=== PATIENT | female | born 1950 | race Caucasian/White ===

== ENCOUNTER → 2018-03-30 | Outpatient (CLI) | payer BC | END | disposition home or self-care (01) | LOC: KCIC MRI 13:46 | DX: S83.242A Other tear of medial meniscus, current injury, left knee, initial encounter (principal); S86.812A Strain of other muscle(s) and tendon(s) at lower leg level, left leg, initial encounter; M17.12 Unilateral primary osteoarthritis, left knee; M25.462 Effusion, left knee; X58.XXXA Exposure to other specified factors, initial encounter; Y93.89 Activity, other specified; Y92.89 Other specified places as the place of occurrence of the external cause; Y99.8 Other external cause status | CPT/HCPCS: 73721 ==

== ENCOUNTER → 2018-07-03 | Outpatient (CLI) | payer BC ==
[2015-12-24 17:59] VITALS: BP 144/70
[~2018-07-03] MED LIST: CHOL200074 PO; LOSA50TA7 PO; LOVA10TA PO
--- NOTE | 2018-07-03 17:15 | KCIC ---
LUMBAR SPINE 2-3V History: Spondylolisthesis Comparison: None. Findings: 3 views of the lumbar spine to include neutral, flexion, and extension radiographs are submitted. Lumbar vertebral body stature is maintained. There is grade 1 anterior spondylolisthesis L4-L5 somewhat accentuated with flexion. There is questionable minimal posterior subluxation L5 relative S1 in neutral position not seen with flexion or extension. There is moderate to severe narrowing of the L5-S1 intervertebral disc space, mild to moderate narrowing at L4-L5. There is multilevel lumbar facet degenerative change. There is atherosclerotic calcification of the abdominal aorta. Impression: 1. There is grade 1 anterior spondylolisthesis L4-5 somewhat accentuated with flexion. There is questionable minimal posterior subluxation L5 relative to S1 only seen with neutral position. There is degenerative disc disease greatest at L5-S1 and to lesser degree at L4-5. There is multilevel lumbar facet degenerative change. Electronically signed by: Fabián Uriarte MD (07/03/2018 5:12 PM) [id number]
== END | disposition home or self-care (01) ==
LOC: KCIC 15:07
PROVIDERS: ATTEND Neurological Surgery
DX: M43.16 Spondylolisthesis, lumbar region (principal); M51.37 Other intervertebral disc degeneration, lumbosacral region
CPT/HCPCS: 72100

== ENCOUNTER 2019-02-07 16:29 | Emergency (ER) | payer BC ==
[~2019-02-07] VITALS: Ht 160 cm; Wt 95.3 kg
[~2019-02-07 16:29] MED LIST changes: +LOSA-73 PO; -LOSA50TA7 PO
--- NOTE | 2019-02-07 16:58 | PHYS DOC ---
Past Medical History Past Medical History: High Cholesterol, Hypertension Past Surgical History: Tubal ligation Alcohol Use: None Drug Use: None Adult General Chief Complaint Chief Complaint: LACERATION/AVULSION HPI HPI Patient is a 69 year old female who presents to the ED today complaining of right thumb laceration, patient is right-handed, she states she reached for a paper rewinder operatorsquare cutter and accidentally touched the blades. Review of Systems Review of Systems Constitutional: Denies fever or chills [] Musculoskeletal: Denies back pain or joint pain [] Integument: Reports right thumb laceration Neurologic: Denies headache, focal weakness or sensory changes [] All other systems were reviewed and found to be within normal limits, except as documented in this note. Allergies Allergies Allergies Coded Allergies Type Severity Reaction Last Updated Verified Sulfa (Sulfonamide Antibiotics) Allergy Severe Hives 09/02/13 Yes erythromycin base Allergy Intermediate INTOLERANCE 09/02/13 Yes Physical Exam Physical Exam Constitutional: Well developed, well nourished, no acute distress, non-toxic appearance. [] Skin: Right ventral thumb distal end with a V-shaped laceration approximately 1 cm long, this no obvious tendon involvement, this is a very superficial laceration. Bleeding is well controlled. Neurovascular exam is is intact. +2 right radial pulse. Back: No tenderness, no CVA tenderness. [] Extremities: No tenderness, no cyanosis, no clubbing, ROM intact, no edema. [] Neurologic: Alert and oriented X 3, normal motor function, normal sensory function, no focal deficits noted. [] Psychologic: Affect normal, judgement normal, mood normal. [] EKG EKG [] Radiology/Procedures Radiology/Procedures [] Course & Med Decision Making Course & Med Decision Making Pertinent Labs and Imaging studies reviewed. (See chart for details) This is a 69-year-old female patient who presents to the ED today with a superfi cial laceration to the right thumb which was closed with Dermabond. Wound care instructions and return precautions provided. Tetanus up-to-date. Dragon Disclaimer Dragon Disclaimer This electronic medical record was generated, in whole or in part, using a voice recognition dictation system. Departure Departure Impression: Primary Impression: Finger laceration Disposition: 01 HOME, SELF-CARE Condition: STABLE Referrals: YOSEF ROMERO MD (PCP) Follow-up as needed Patient Instructions: Fingertip Laceration Additional Instructions: You have right thumb laceration that was closed with Dermabond/medical group. Keep the area clean and dry. You can shower. Apply Neosporin to the area twice a day. Monitor the area for any signs of infection including but not limited to increased redness,, yellow/odor is drainage from the area and return to the ED if they occur or see your own doctor. Problem Qualifiers Primary Impression: Finger laceration Encounter type: initial encounter Finger: thumb Damage to nail status: without damage Foreign body presence: without foreign body Laterality: right Qualified Codes: S61.011A - Laceration without foreign body of right thumb without damage to nail, initial encounter ELENA ALVAREZ GRIP BOSS February 07, 2019 16:58
[2019-02-07 17:05] VITALS: BP 169/87
== END 2019-02-07 17:23 | disposition home or self-care (01) ==
LOC: ER 16:29
DX: S61.011A Laceration without foreign body of right thumb without damage to nail, initial encounter (principal); E78.00 Pure hypercholesterolemia, unspecified; I10 Essential (primary) hypertension; Z98.51 Tubal ligation status; Z88.2 Allergy status to sulfonamides; Z88.1 Allergy status to other antibiotic agents; W31.89XA Contact with other specified machinery, initial encounter; Y93.89 Activity, other specified; Y92.89 Other specified places as the place of occurrence of the external cause; Y99.8 Other external cause status
CPT/HCPCS: 12001; 99283

== ENCOUNTER 2020-08-31 23:24 | Emergency (ER) | payer MEDICARE, OTHER ==
[~2020-08-31] VITALS: Ht 160 cm; Wt 95.4 kg
--- NOTE | 2020-08-31 23:49 | PHYS DOC ---
Past Medical History Past Medical History: High Cholesterol, Hypertension Past Surgical History: Tubal ligation Smoking Status: Never Smoker Alcohol Use: None Drug Use: None Adult General Chief Complaint Chief Complaint: HIP PAIN HPI HPI Patient is a 70 year old female complaining of bilateral hip pain. Patient reports this is an acute on chronic issue, she has chronic lower back pain in addition to a chronically torn left meniscus and knee that she has been told will require a total knee replacement. Nonetheless, patient reports seeing chiropractor this morning who performed manipulation on her hip areas. Shortly after, patient reports sitting on the ground cleaning her fireplace approximately 12 hours ago prior to arrival and tried to get up rolling on her left side. She reports when she tried to stand up on her left foot she felt a pop in her left hip. Ever since, she has reported vague bilateral hip pain. She has been ambulatory since the accident. Ongoing pain prompted her to take x2 Tylenol Extra Strength with mild relief in symptoms. Patient went on about her day citing an antalgic gait without any other abnormalities such as loss of bladder or bowel function, saddle anesthesia, loss of rectal tone etc. and fell asleep. She reports rolling over in her sleep onto her left side which cause pain and wake her up prompting her to come to our ER for evaluation Review of Systems Review of Systems Fourteen body systems of review of systems have been reviewed. See HPI for pertinent positives and negative responses, other sweeney all other systems are negative, non-pertinent or non-contributory Current Medications Current Medications Current Medications Medications (Trade) Dose Ordered Sig/Yonas Start Time Stop Time Status Last Admin Dose Admin Ibuprofen (Motrin) 600 mg 1X ONCE 09/01/20 00:00 09/01/20 00:19 DC Ketorolac Tromethamine (Toradol 30mg Vial) 30 mg 1X ONCE 09/01/20 00:45 09/01/20 00:46 DC Allergies Allergies Allergies Coded Allergies Type Severity Reaction Last Updated Verified Sulfa (Sulfonamide Antibiotics) Allergy Severe Hives 09/02/13 Yes erythromycin base Allergy Intermediate INTOLERANCE 09/02/13 Yes Physical Exam Physical Exam Constitutional: Pt is oriented to person, place, and time. Pt appears well-developed and well- nourished. HEENT: Head: Normocephalic and atraumatic. Bilateral external ears unremarkable, negative gallardo sign Conjunctivae and EOM are normal. Pupils are equal, round, and reactive to light. Oropharynx is clear and moist. No hematomas or lacerations or abrasions to face or scalp OP clear, no blood, no malocclusion, dentition intact Nares clear, no nasal septal hematoma Midface stable Neck: C-spine midline nontender, no step-offs Cardiovascular: Normal rate, regular rhythm and normal heart sounds. Pulmonary/Chest: Effort normal and breath sounds normal. No respiratory distress. No wheezes. CTA bilaterally Abdominal: Soft. Bowel sounds are normal. Pt exhibits no distension. There is no tenderness. Musculoskeletal: No bony tenderness to extremities, no deformities, full ROM extremities Chest wall stable Pelvis stable, point tenderness to lateral aspects of bilateral femoral heads without any palpable and/or visual abnormalities Bilateral patellar tendon reflexes 2+ No vertebral TTP and spine without stepoffs Neurological: Pt is alert and oriented to person, place, and time. Moving all extremities willfully, able to wiggle all fingers and toes Ambulatory with antalgic gait Full sensation below umbilicus Alert and oriented x 3 Sensation grossly intact Skin: Skin is warm and dry. No abrasions, no lacerations Psychiatric: Behavior is appropriate for situation, anxious Current Patient Data Vital Signs Vital Signs Date Time Temp Pulse Resp B/P (MAP) Pulse Ox O2 Delivery O2 Flow Rate FiO2 08/31/20 23:58 97.9 72 18 158/84 (108) 97 Room Air 97.9 EKG EKG [] Radiology/Procedures Radiology/Procedures Technical difficulties suffered in ER, radiologist unable to view radiographs obtained while in ER Pelvis and bilateral 3 view hip radiographs obtained and interpreted by myself, grossly unremarkable without any acute bony abnormalities noted Course & Med Decision Making Course & Med Decision Making Pertinent Labs and Imaging studies reviewed. (See chart for details) I discussed negative radiograph based on my interpretation. Patient is ambulatory and showing no concerning signs of lower back/hip pain. I discussed there is little indication for further ER work-up and/or intervention I advised patient to continue supportive care practices after discharge such as taking Tylenol as needed for pain and using heating pads. I also discussed role obstruction and soft tissue focused therapies instead of aggressive chiropractic techniques Patient has good access to primary care physician and reports she can be seen tomorrow or early next week which I feel is reasonable. I educated patient extensively on strict return precautions that should prompt immediate medical attention with good understanding, all questions and concerns addressed prior to ER departure in stable condition Steve Disclaimer Steve Disclaimer This electronic medical record was generated, in whole or in part, using a voice recognition dictation system. Departure Departure Impression: Primary Impression: Hip pain Disposition: 01 DC HOME SELF CARE/HOMELESS Condition: STABLE Referrals: YOSEF ROMERO MD (PCP) Patient Instructions: Hip Pain Additional Instructions: You were evaluated in the Emergency Department today for bilateral hip pain pain. Your evaluation suggests no acute abnormalities which require further intervention at this time. - Move around as tolerated but avoiding heavy lifting. ``Bed rest is not recommended nor is it the best treatment for low back pain. - Medications will help control your discomfort: - Ibuprofen (800 mg every 8 hours for pain) with food. - Tylenol 1 g every 8 hours for pain - Do not drink alcohol, drive a car, operate machinery, or get up on ladders or heights when taking any prescribed pain medications. - Do not drive home if you received prescribed pain medications here in the ED. Return to the ED immediately if you develop any of the following problems: - Leaking urine or difficulty urinating; - Inability to control your bowels; - New numbness or weakness in your legs or numbness between your legs; - Inability to walk - Fever VON PERDOMO DO Aug 31, 2020 23:49
[2020-08-31 23:58] VITALS: BP 158/84
[2020-09-01] MEDS ORDERED: IBUPROFEN 200 MG TABLET. PO ONE
[2020-09-01] MEDS ORDERED: KETOROLAC 30 MG/ML VIAL. IM ONE (00:45)
--- NOTE | 2020-09-01 08:25 | RAD ---
History: Reason: BILATERAL HIP PAIN S/P CHIROPRACTOR / Spl. Instructions: / History: Technique: AP view the pelvis and 2 additional views of the bilateral hips. Comparison: None. Findings: Normal alignment. No fracture. Lower lumbar spondylosis. Impression: 1. No acute osseous abnormality. MTDD
== END 2020-09-01 02:05 | disposition home or self-care (01) ==
LOC: ER 23:24
DX: M25.551 Pain in right hip (principal); M25.552 Pain in left hip; G89.29 Other chronic pain; M54.5 Low back pain; E78.00 Pure hypercholesterolemia, unspecified; I10 Essential (primary) hypertension; Z98.51 Tubal ligation status; Z88.1 Allergy status to other antibiotic agents; Z88.2 Allergy status to sulfonamides
CPT/HCPCS: 73521; 99283